=== PATIENT | male | born 1955 | race Caucasian/White ===

== ENCOUNTER 2017-03-26 18:30 | Emergency (ER) | payer OTHER ==
[2017-03-26] MEDS ORDERED: IV NORMAL SALINE 1,000ML 1,000 ML IV SCH (19:00)
[2017-03-26] MEDS ORDERED: HYDROmorphone PF 1 MG/ML DISP.SYRIN IV/SQ PRN (19:00)
[2017-03-26] MEDS ORDERED: 0.9 % SODIUM CHLORIDE 10 ML DISP.SYRIN. IV PRN (19:00)
--- NOTE | 2017-03-26 19:08 | PHYS DOC ---
Past History Past Medical History: High Cholesterol, Other Additional Past Medical Histor: lower back pain Past Surgical History: Lumbar Laminectomy, Other Additional Past Surgical Histo: lumbar fusion Smoking: Non-smoker Drug Use: None Adult General Chief Complaint Chief Complaint: SHORTNESS OF BREATH [facility] he is a pleasant 61-year-old male with a history of chronic lower back pain requiring surgical intervention and recent L3-L4 L4-L5 spinal fusion. He is under the care of a neurosurgeon at [facility] who underwent surgery last week Friday. Surgery lasted approximately 3 hours and the patient was admitted and discharge approximately 3 days later. During the course of his evaluation and hospitalization patient did suffer from some hiccups. He was given Thorazine which created marked improvement in his symptomatology. Over the course of last 2 days patient has had increasing frequency of hiccups but not actually painful other than the fact that they cause some shortness of breath as he tries to prevent against hiccups. He denies any chest pain, shortness of breath is transient lasting only. As long as the hiccups are occurring. He denies any nausea, vomiting, diarrhea UTI symptoms, abdominal pain or distention. Patient admits he did have some lower extremity edema on the lateral thighs and lower legs but that is now resolved secondary to ambulation and compression stockings. Patient denies any fevers or chills. The has been taking care of the wound on his back which has improved significantly although is still oozing some serous sinus bleeding. He denies any numbness and tingling the lower legs bilaterally. Review of Systems Review of Systems Constitutional: Denies fever or chills [] Eyes: Denies change in visual acuity, redness, or eye pain [] HENT: Denies nasal congestion or sore throat [] Respiratory: Denies cough or shortness of breath [] Cardiovascular: No additional information not addressed in HPI [] GI: Denies abdominal pain, nausea, vomiting, bloody stools or diarrhea he is having some hiccups with some epigastric discomfort during hiccups no chest pain [] : Denies dysuria or hematuria [] Musculoskeletal: Complains of lower back pain that is chronic in nature secondary surgery which is expected Integument: Denies rash or skin lesions [] Neurologic: Denies headache, focal weakness or sensory changes he does admit to feeling generally weak [] Endocrine: Denies polyuria or polydipsia [] All other systems were reviewed and found to be within normal limits, except as documented in this note. Current Medications Current Medications Current Medications Medications (Trade) Dose Ordered Sig/Arnie Start Time Stop Time Status Last Admin Dose Admin Chlorpromazine HCl 25 mg/Sodium Chloride 50 ml @ 100 mls/hr PRN Q6HRS PRN 03/26/17 19:00 UNV Diazepam (Valium) 10 mg 1X ONCE 03/26/17 19:00 03/26/17 19:01 UNV Hydromorphone HCl (Dilaudid) 1 mg PRN Q15MIN PRN 03/26/17 19:00 03/27/17 18:59 UNV Sodium Chloride (Normal Saline Flush) 10 ml QSHIFT PRN 03/26/17 19:00 UNV Allergies Allergies Allergies Coded Allergies Type Severity Reaction Last Updated Verified acetaminophen Allergy Unknown ITCHING 03/26/17 Yes morphine Allergy Unknown ITCHING 03/26/17 Yes oxycodone Allergy Unknown ITCHING 03/26/17 Yes Physical Exam Physical Exam Constitutional: Well developed, well nourished, he is obviously uncomfortable sitting quietly but whenever he moves pain does erupt from his back. He's had minimal hiccups during his evaluation. HENT: Normocephalic, atraumatic, bilateral external ears normal, oropharynx moist, no oral exudates, nose normal. [] Eyes: PERRLA, EOMI, conjunctiva normal, no discharge. [] Neck: Normal range of motion, no tenderness, supple, no stridor. [] Cardiovascular:Heart rate regular rhythm, no murmur [] Lungs & Thorax: Bilateral breath sounds clear to auscultation [] Abdomen: Bowel sounds normal, soft, no tenderness, no masses, no pulsatile masses. No guarding rebound or organomegaly. [] Skin: Warm, dry, no erythema, no rash. [] Back: Does have significant tenderness around the lumbar spine wound is clean, dressed with clean bandages. Extremities: he has no evidence of Homans sign, no edema patient is wearing compression stockings of the lower legs bilaterally with no obvious swelling to the lateral thighs Neurologic: Alert and oriented X 3, normal motor function, normal sensory function, no focal deficits noted. [] Psychologic seems somewhat anxious but judgment is normal EKG EKG []E.g. timed 7:04 PM 03/26/2017 read by me demonstrates a sinus rhythm of 77 with P wave in the QRS there is no ST segment T-wave changes consistent with acute ischemia. Patient has a flat and inverted T-wave in lead 3 and aVF. Patient has no evidence of interval changes NH interval of 170s normal, QRS interval 90 forces normal, QTC of 398 which is also normal. Radiology/Procedures Radiology/Procedures [] [address] [address] IMAGING REPORT Signed PATIENT: SIXTO PERRIN ACCOUNT: [id number] : 1955 LOCATION: ER AGE: 61 SEX: M EXAM STATUS: REG ER ORD. PHYSICIAN: CLYDE KUMAR MD REASON: SHORTNESS OF BREATH PROCEDURE: CT ANGIOGRAPHY CHEST CTA Chest with contrast: Clinical History: PE PROTOCOL - CHEST PAIN, BACK PAIN, SHORTNESS OF BREATH, S/P SPINAL FUSION
GAVE ONNI 300 75ML IV - TOLERATED WELL
GFR 66
NO PREVIOUS FOR COMPARISON Shortness of breath. Axial helical images of the chest were obtained after the administration of 75 cc of IV Omni 300 and timed appropriately for a pulmonary arterial study. Conventional axial reconstruction was performed in addition to coronal, sagittal and bilateral oblique MIP (maximum intensity projection). This study was ordered to detect possible pulmonary embolism. There are no filling defects to suggest pulmonary embolism. The more peripheral subsegmental pulmonary arteries are not well opacified limiting our sensitivity for small peripheral pulmonary emboli. The lungs and pleural margins are clear. There is no mediastinal or hilar lymphadenopathy. The thoracic aorta appears normal. Impression: 1. No evidence of pulmonary embolism. 2. No significant findings. PQRS Compliance Statement: One or more of the following individualized dose reduction techniques were utilized for this examination: 1. Automated exposure control 2. Adjustment of the mA and/or kV according to patient size 3. Use of iterative reconstruction technique Electronically signed by: Rhian Perez III, MD (03/26/2017 8:32 PM) [facility] DICTATED AND SIGNED BY: RHINA PEREZ III, MD DATE: 03/26/172024 CC: CLYDE KUMAR MD; JAMES HUGGINS ~ Course & Med Decision Making Course & Med Decision Making Pertinent Labs and Imaging studies reviewed. (See chart for details) Differential diagnosis: Acute myocardial ischemia, heart failure, cardiac tamponade, bronchospasm, pulmonary embolism, pneumothorax, pulmonary infection i.e. bronchitis or pneumonia, upper airway obstruction, anaphylaxis, aspiration , psychogenic, pulmonary contusion, toxidrome, pneumomediastinum, noncardiogenic pulmonary edema or ARDS, COPD, tuberculosis, cystic fibrosis, asthma, high altitude pulmonary edema, valvular dysfunction, cardiac dysrhythmia , stroke, neuromuscular diseases like myasthenia gravis gravis, ALS, Guillain- Daley syndrome, metabolic acidosis to include diabetic ketoacidosis, sepsis, and obstructive disorders like massive obesity Concern was pulmonary embolism given his recent surgery and diaphragmatic irritation likely from either a lower lobe pneumonia or possibly from medications that he is presumably taking. [] Patient at 7:50 PM is sleeping quietly with no hiccups. Patient had a 827 PM still sleeping quietly we are still waiting the results of the CT angios the chest patient still has no hiccups. Time is now 9:[address] angios the chest demonstrates no infiltrate, no diaphragmatic fluid, no pneumonia, no PE. Patient is still resting calmly hiccups is still no longer present. This point patient is ready to go home although his back is still causing some discomfort for him he is anticipating this after the surgery he has plenty of medications at home for pain to include Valium and hydrocodone. Patient will provide a short course of Thorazine and attempt to help out with this experience with hiccups. Dragon Disclaimer Dragon Disclaimer This electronic medical record was generated, in whole or in part, using a voice recognition dictation system. Departure Departure: Impression: Primary Impression: Dyspnea Additional Impression: Hiccups Disposition: 01 HOME, SELF-CARE Condition: IMPROVED Referrals: JAMES HUGGINS (PCP) Patient Instructions: Hiccups, Shortness of Breath Additional Instructions: discharge: I've spoken with the patient and/or caregivers. I've explained the patient's condition, diagnosis and treatment plan based on information available to me at this time. I've answered the patient's and/or caregivers questions and addressed any concerns. The patient and/or caregivers have a good understanding the patient's diagnosis, condition and treatment plan as can be expected at this point. Vital signs have been stabilized. The patient's condition is stable for discharge from the emergency department. The patient will pursue further outpatient evaluation with her primary care provider or other designated consulting physician as outlined in the discharge instructions. Patient and/or caregivers are agreeable to this plan of care and follow-up instructions have been explained in detail. The patient and/or caregivers have received these instructions in written format and expressed understanding of these discharge instructions. The patient and her caregivers are aware that if any significant change in condition or worsening of symptoms should prompt him to immediately return to this of the closest emergency department. If an emergent department is not readily available I would encourage him to call 911. Scripts Metoclopramide Hcl (REGLAN) 10 Mg Tablet 1 TAB PO TID, #20 TAB Prov: CLYDE KUMAR MD 03/26/17 Chlorpromazine Hcl (CHLORPROMAZINE HCL) 25 Mg/1 Ml Ampul 25 MG IJ TID PRN Y for HICCUPS for 10 Days, EACH Prov: CLYDE KUMAR MD 03/26/17 Problem Qualifiers CLYDE KUMAR MD Mar 26, 2017 19:08
[2017-03-26] MEDS ORDERED: IOHEXOL 300 MG/ML 75 ML VIAL. IV ONE (19:15)
[2017-03-26] MEDS ORDERED: diazePAM 5 MG TABLET PO ONE (19:20)
[2017-03-26 19:24] LABS: BASO % 0 % (0-3); EOS # 0.2 x10^3/uL (0.0-0.7); EOS % 2 % (0-3); HEMATOCRIT 40.4 % (39.0-53.0); HEMOGLOBIN 14.2 g/dL (13.0-17.5); LYMPH # 1.1 x10^3/uL (1.0-4.8); LYMPH % 12 % (24-48); MEAN CORPUSCULAR HEMOGLOBIN 31 pg (25-35); MEAN CORPUSCULAR HGB CONC 35 g/dL (31-37); MEAN CORPUSCULAR VOLUME 88 fL (79-100); MONO # 0.8 x10^3/uL (0.0-1.1); MONO % 8 % (0-9); NEUT # 7.2 x10^3uL (1.8-7.7); NEUT % 77 % (31-73); PLATELET COUNT 373 x10^3/uL (140-400); RED CELL DISTRIBUTION WIDTH 12.7 % (11.5-14.5); WHITE BLOOD COUNT 9.3 x10^3/uL (4.0-11.0)
[2017-03-26 19:52] LABS: ALBUMIN 3.2 g/dL (3.4-5.0); ALBUMIN/GLOBULIN RATIO 0.7 (1.0-1.7); ALK PHOS 154 U/L (46-116); ALT (SGPT) 46 U/L (16-63); ANION GAP 6 (6-14); AST (SGOT) 26 U/L (15-37); BLOOD UREA NITROGEN 16 mg/dL (8-26); BUN/CREATININE RATIO 13 (6-20); CALCIUM 9.1 mg/dL (8.5-10.1); CARBON DIOXIDE 30 mmol/L (21-32); CHLORIDE 103 mmol/L (98-107); CREATINE KINASE 106 U/L (39-308); CREATININE 1.2 mg/dL (0.7-1.3); GFR 61.3; GLUCOSE 119 mg/dL (70-99); LIPASE 88 U/L (73-393); MAGNESIUM 2.1 mg/dL (1.8-2.4); SODIUM 139 mmol/L (136-145); TOTAL BILIRUBIN 0.4 mg/dL (0.2-1.0); TOTAL PROTEIN 7.9 g/dL (6.4-8.2)
--- NOTE | 2017-03-26 20:36 | RAD ---
CTA Chest with contrast: Clinical History: PE PROTOCOL - CHEST PAIN, BACK PAIN, SHORTNESS OF BREATH, S/P SPINAL FUSION
GAVE ONNI 300 75ML IV - TOLERATED WELL
GFR 66
NO PREVIOUS FOR COMPARISON Shortness of breath. Axial helical images of the chest were obtained after the administration of 75 cc of IV Omni 300 and timed appropriately for a pulmonary arterial study. Conventional axial reconstruction was performed in addition to coronal, sagittal and bilateral oblique MIP (maximum intensity projection). This study was ordered to detect possible pulmonary embolism. There are no filling defects to suggest pulmonary embolism. The more peripheral subsegmental pulmonary arteries are not well opacified limiting our sensitivity for small peripheral pulmonary emboli. The lungs and pleural margins are clear. There is no mediastinal or hilar lymphadenopathy. The thoracic aorta appears normal. Impression: 1. No evidence of pulmonary embolism. 2. No significant findings. PQRS Compliance Statement: One or more of the following individualized dose reduction techniques were utilized for this examination: 1. Automated exposure control 2. Adjustment of the mA and/or kV according to patient size 3. Use of iterative reconstruction technique Electronically signed by: Desean Chavarria III, MD (03/26/2017 8:32 PM) [facility]
[2017-03-26 21:41] VITALS: BP 119/67
[2017-03-26] MEDS ORDERED: CHLO25AM IJ (21:46)
[2017-03-26] MEDS ORDERED: METO10TA81 PO (21:46)
[2017-03-26] MEDS ORDERED: CHLO25TA4 PO (21:53)
--- NOTE | 2017-03-27 01:13 | EKG ---
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
--- NOTE | 2017-03-27 08:06 | RAD ---
Portable chest, 03/26/2017: History: Chest pain, shortness of breath The heart size and pulmonary vascularity are normal. No pulmonary infiltrates are seen. There is no evidence of pleural fluid. IMPRESSION: No acute cardiopulmonary abnormality is detected.
== END 2017-03-26 21:59 | disposition home or self-care (01) ==
LOC: ER 18:30
DX: R06.6 Hiccough (principal); R06.00 Dyspnea, unspecified; R10.13 Epigastric pain; G89.29 Other chronic pain; E78.00 Pure hypercholesterolemia, unspecified; Z98.890 Other specified postprocedural states; Z88.6 Allergy status to analgesic agent; Z88.5 Allergy status to narcotic agent
CPT/HCPCS: 36415; 71010; 71275; 80053; 82553; 83690; 83735; 83880; 84443; 84484; 85025; 93005; 96365; 96366; 99285; J3230; Q9967

== ENCOUNTER 2021-07-10 14:36 | Emergency (ER) | payer MEDICARE, OTHER ==
[~2021-07-10] VITALS: Ht 193 cm; Wt 97.2 kg
[~2021-07-10 14:36] MED LIST: CHLO25AM IJ; CHLO25TA4 PO; METO10TA81 PO
[2021-07-10] MEDS ORDERED: ONDANSETRON PF 4 MG/2 ML VIAL. IVP ONE (15:15)
[2021-07-10] MEDS ORDERED: IV NORMAL SALINE 1,000ML 1,000 ML IV ONE ×2 (15:15→16:15)
[2021-07-10] MEDS ORDERED: MORPHINE SULFATE 4 MG/ML DISP.SYRIN. IV ONE ×2 (15:15→16:15)
--- NOTE | 2021-07-10 15:20 | PHYS DOC ---
Past History Past Medical History: High Cholesterol, Other Additional Past Medical Histor: lower back pain Past Surgical History: Lumbar Laminectomy, Other Additional Past Surgical Histo: lumbar fusion Smoking: Non-smoker Alcohol Use: Occasionally Drug Use: None General Adult EDM: Chief Complaint: GROIN PAIN HPI: HPI: 66-year-old male presents with right lower quadrant and groin pain. Patient has a history of kidney stones and he states that this feels the same as his previous episodes. It started suddenly while he was doing some woodwork. He was not doing any heavy lifting or strenuous activity. He has not urinated since that time. Denies fever or chills. His pain is moderate in intensity. Review of Systems: Review of Systems: Constitutional: Denies fever or chills Eyes: Denies change in visual acuity HENT: Denies nasal congestion or sore throat Respiratory: Denies cough or shortness of breath Cardiovascular: Denies chest pain or edema GI: Denies abdominal pain, nausea, vomiting, bloody stools or diarrhea : Right groin and flank pain Musculoskeletal: Denies back pain or joint pain Integument: Denies rash Neurologic: Denies headache, focal weakness or sensory changes Endocrine: Denies polyuria or polydipsia Lymphatic: Denies swollen glands Psychiatric: Denies depression or anxiety Current Medications: Current Meds: Current Medications Medications (Trade) Dose Ordered Sig/Arnie Start Time Stop Time Status Last Admin Dose Admin Morphine Sulfate (Morphine 4mg Syringe) 4 mg 1X ONCE 07/10/21 15:15 07/10/21 15:16 Ondansetron HCl (Zofran) 4 mg 1X ONCE 07/10/21 15:15 07/10/21 15:16 Sodium Chloride 1,000 ml @ 1,000 mls/hr 1X ONCE 07/10/21 15:15 07/10/21 16:14 Allergies: Allergies: Allergies Coded Allergies Type Severity Reaction Last Updated Verified oxycodone Allergy Unknown ITCHING 07/10/21 Yes Physical Exam: PE: Constitutional: Well developed, well nourished, no acute distress, non-toxic appearance. [] HENT: Normocephalic, atraumatic, bilateral external ears normal, oropharynx moist, no oral exudates, nose normal. [] Eyes: PERRLA, EOMI, conjunctiva normal, no discharge. [] Neck: Normal range of motion, no tenderness, supple, no stridor. [] Cardiovascular:Heart rate regular rhythm, no murmur [] Lungs & Thorax: Bilateral breath sounds clear to auscultation [] Abdomen: Bowel sounds normal, soft, no tenderness, no masses, no pulsatile masses. [] Skin: Warm, dry, no erythema, no rash. [] Back: No tenderness, no CVA tenderness. [] Extremities: No tenderness, no cyanosis, no clubbing, ROM intact, no edema. [] Neurologic: Alert and oriented X 3, normal motor function, normal sensory function, no focal deficits noted. [] Psychologic: Affect normal, judgement normal, mood normal. [] Current Patient Data: Vital Signs: Vital Signs Date Time Temp Pulse Resp B/P (MAP) Pulse Ox O2 Delivery O2 Flow Rate FiO2 07/10/21 14:44 97.9 78 18 158/92 (114) 98 Room Air EKG: EKG: [] Radiology/Procedures: Radiology/Procedures: [] Impressions: Exam: CT of abdomen and pelvis without contrast INDICATION: Flank pain, history of stone TECHNIQUE: Sequential axial images through the abdomen and pelvis obtained without IV contrast. Sagittal and coronal reformatted images were reconstructed from the axial data and reviewed. Exposure: One or more of the following in the visualized dose reduction techniques were utilized for this examination: 1. Automated exposure control 2. Adjustment of the MA and/or KV according to patient size 3. Use of iterative of reconstructive technique Comparisons: None FINDINGS: Heart size is normal. No pericardial effusion. Visualized lung bases are clear. No pleural effusion. Evaluation of solid organs is limited to a to noncontrast technique. Liver, spleen, pancreas, gallbladder and adrenals are unremarkable. Mild right-sided hydronephrosis. Nonobstructing renal calculi noted bilaterally. There are 2 ureteral calculi at the distal right ureter with one at the ureter ovesicular junction measuring 5 mm. Bladder is decompressed not well evaluated. Prostate is not enlarged. Extensive diverticulosis noted at the sigmoid colon without evidence of acute diverticulitis. Appendix is normal. No free intra-abdominal air or fluid. No obstruction. Abdominal aorta has a normal course and caliber. No enlarged intra-abdominal lymph nodes are identified. No suspicious osseous lesions or acute fractures. IMPRESSION: 1. There are 2 ureteral calculi at the distal right ureter, largest measuring 5 mm at the ureterovesicular junction. Resultant mild right-sided hydronephrosis. 2. Bilateral nonobstructing renal calculi noted. 3. Extensive diverticulosis the sigmoid colon without evidence of acute diverticulitis. Electronically signed by: Adri Rocha MD (07/10/2021 3:44 PM) [facility] DICTATED AND SIGNED BY: ADRI ROCHA MD DATE: 07/10/21 1538 CC: RAS HELMS DO; JAMES HUGGINS ~MTH0 0 Heart Score: C/O Chest Pain: N/A Risk Factors: Risk Factors: DM, Current or recent (<one month) smoker, HTN, HLP, family history of CAD, obesity. Risk Scores: Score 0 - 3: 2.5% MACE over next 6 weeks - Discharge Home Score 4 - 6: 20.3% MACE over next 6 weeks - Admit for Clinical Observation Score 7 - 10: 72.7% MACE over next 6 weeks - Early Invasive Strategies Course & Med Decision Making: Course & Med Decision Making Pertinent Labs and Imaging studies reviewed. (See chart for details) I will give the patient a liter normal saline, 4 mg Zofran, 4 mg of morphine and perform a CT scan without contrast. CT shows 2 stones in the distal right ureter with mild hydronephrosis. The largest is 5 mm. The patient has a history of uremic acid stone. I will treat the patient with pain medicine, Flomax, potassium bicarbonate. The patient's urinalysis is significant for yeast. I will go and treat the patient with 100 mg of Diflucan twice daily for 14 days. Have advised that he follow-up with urology this week. He is stable for discharge at this time. [] Dragon Disclaimer: Dragon Disclaimer: This electronic medical record was generated, in whole or in part, using a voice recognition dictation system. Departure Departure: Impression: Primary Impression: Kidney stone on right side Additional Impression: Yeast UTI Disposition: HOME / SELF CARE / HOMELESS Condition: STABLE Referrals: JAMES HUGGINS (PCP) Patient Instructions: Kidney Stones, [id number], Urinary Tract Infection, Dcck-me-[id number] Scripts Fluconazole (DIFLUCAN) 100 Mg Tablet 100 MG PO DAILY for UTI for 14 Days, #14 TAB Prov: RAS HELMS DO 07/10/21 Tamsulosin Hcl (FLOMAX) 0.4 Mg Cap.er.24h 1 CAP PO DAILY for kidney stone for 10 Days, #10 CAP Prov: RAS HELMS DO 07/10/21 Potassium Citrate (POTASSIUM CITRATE) 10 Meq Tablet.er 2 TAB PO BID for uric acid kidney stone for 10 Days, #40 TAB 3 Refills Prov: RAS HELMS DO 07/10/21 RAS HELMS DO Jul 10, 2021 15:20
--- NOTE | 2021-07-10 15:47 | RAD ---
Exam: CT of abdomen and pelvis without contrast INDICATION: Flank pain, history of stone TECHNIQUE: Sequential axial images through the abdomen and pelvis obtained without IV contrast. Sagit eddei and coronal reformatted images were reconstructed from the axial data and reviewed. Exposure: One or more of the following in the visualized dose reduction techniques were utilized for this examination: 1. Automated exposure control 2. Adjustment of the MA and/or KV according to patient size 3. Use of iterative of reconstructive technique Comparisons: None FINDINGS: Heart size is normal. No pericardial effusion. Visualized lung bases are clear. No pleural effusion. Evaluation of solid organs is limited to a to noncontrast technique. Liver, spleen, pancreas, gallbladder and adrenals are unremarkable. Mild right-sided hydronephrosis. Nonobstructing renal calculi noted bilaterally. There are 2 ureteral calculi at the distal right ureter with one at the ureterovesicular junction measuring 5 mm. Bladder is decompressed not well evaluated. Prostate is not enlarged. Extensive diverticulosis noted at the sigmoid colon without evidence of acute diverticulitis. Appendi x is normal. No free intra-abdominal air or fluid. No obstruction. Abdominal aorta has a normal course and caliber. No enlarged intra-abdominal lymph nodes are identified. No suspicious osseous lesions or acute fractures. IMPRESSION: 1. There are 2 ureteral calculi at the distal right ureter, largest measuring 5 mm at the ureteroves icular junction. Resultant mild right-sided hydronephrosis. 2. Bilateral nonobstructing renal calculi noted. 3. Extensive diverticulosis the sigmoid colon without evidence of acute diverticulitis. Electronically signed by: Adri Singh MD (07/10/2021 3:44 PM) [facility]
[2021-07-10 15:56] LABS: BASO % 0 % (0-3); EOS # 0.1 x10^3/uL (0.0-0.7); EOS % 1 % (0-3); HEMATOCRIT 45.4 % (39.0-53.0); HEMOGLOBIN 15.5 g/dL (13.0-17.5); LYMPH # 0.9 x10^3/uL (1.0-4.8); LYMPH % 13 % (24-48); MEAN CORPUSCULAR HEMOGLOBIN 31 pg (25-35); MEAN CORPUSCULAR HGB CONC 34 g/dL (31-37); MEAN CORPUSCULAR VOLUME 89 fL (79-100); MONO # 0.3 x10^3/uL (0.0-1.1); MONO % 5 % (0-9); NEUT # 5.8 x10^3uL (1.8-7.7); NEUT % 81 % (31-73); PLATELET COUNT 184 x10^3/uL (140-400); RED BLOOD COUNT 5.09 x10^6/uL (4.30-5.70); RED CELL DISTRIBUTION WIDTH 13.3 % (11.5-14.5); WHITE BLOOD COUNT 7.1 x10^3/uL (4.0-11.0)
[2021-07-10 16:03] LABS: CALCIUM 8.8 mg/dL (8.5-10.1); CREATININE 1.1 mg/dL (0.7-1.3); GFR 66.8; POTASSIUM 4.2 mmol/L (3.5-5.1)
[2021-07-10 16:09] LABS: ALBUMIN 4.4 g/dL (3.4-5.0); ALBUMIN/GLOBULIN RATIO 1.6 (1.0-1.7); TOTAL BILIRUBIN 0.6 mg/dL (0.2-1.0); TOTAL PROTEIN 7.1 g/dL (6.4-8.2)
[2021-07-10] MEDS ORDERED: KETOROLAC 30 MG/ML VIAL. IVP ONE (16:15)
[2021-07-10] MEDS ORDERED: POTA10TA17 PO (16:33)
[2021-07-10] MEDS ORDERED: TAMS0.4C97 PO (16:34)
[2021-07-10 17:19] LABS: CLARITY,URINE CLOUDY; COLOR,URINE BROWN; GLUCOSE,URINE NEG (NEG)
[2021-07-10 17:20] LABS: BACTERIA,URINE MOD /HPF (0-FEW); NITRITE,URINE NEG (NEG); RBC,URINE TNTC /HPF (0-2); SQUAMOUS EPITHELIAL CELL,UR OCC /LPF; UROBILINOGEN,URINE 0.2 mg/dL (0.2 mg/dL); WBC,URINE 0 /HPF (0-4); YEAST,URINE PRESENT /HPF
[2021-07-10 17:28] VITALS: BP 132/75
[2021-07-10] MEDS ORDERED: FLUC100T7 PO (17:32)
[2021-07-10] MEDS ORDERED: HYDR-2759 PO (17:40)
== END 2021-07-10 17:51 | disposition home or self-care (01) ==
LOC: ER 14:36
DX: N13.2 Hydronephrosis with renal and ureteral calculous obstruction (principal); B37.49 Other urogenital candidiasis; E78.00 Pure hypercholesterolemia, unspecified; Z88.5 Allergy status to narcotic agent
CPT/HCPCS: 36415; 74176; 80053; 81001; 85025; 87086; 96361; 96374; 96375; 96376; 99284; J1885; J2270; J2405; J7030